=== PATIENT | female | born 2000 | race Caucasian/White ===

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

== ENCOUNTER 2019-01-10 12:21 | Emergency (ER) | payer MEDICAID ==
[~2019-01-10] VITALS: Ht 160 cm; Wt 94.3 kg
[2019-01-10 12:43] VITALS: BP 129/65
--- NOTE | 2019-01-10 13:01 | NUR ---
PT BIB FAMILY C/O COUGH AND THROAT PAIN X3 DAYS. PT REPORT SORE PAIN AT 10/10. PT REPORTS SOB AT NIGHT, STATES SHE HAS BEEN USING HER INHALER WITH NO RELIEF. RR EVEN, NON-LABORED, BREATH SOUNDS CLEAR, AIRWAY PATENT, NO REDNESS OR SWELLING VISIBLE IN THROAT. PT DENIES N/V/D OR FEVER. VSS. ER MD TO SEE PT. MEDHX:ASTHMA RX:ALBUTEROL
[2019-01-10 14:54] VITALS: BP 138/82
--- NOTE | 2019-01-10 14:54 | NUR ---
Patient discharged with v/s stable. Written and verbal after care instructions given and explained. Patient alert, oriented and verbalized understanding of instructions. Ambulatory with steady gait. All questions addressed prior to discharge. ID band removed. Patient advised to follow up with PMD. Rx of PREDNISONE 20MG, MOTRIN 800MG AND NORCO 5MG-325MG given. Patient educated on indication of medication including possible reaction and side effects. Opportunity to ask questions provided and answered.
== END 2019-01-10 14:54 | disposition home or self-care (01) ==
LOC: MED 12:21
DX: R05 Cough (principal); H92.01 Otalgia, right ear; R50.9 Fever, unspecified; J45.909 Unspecified asthma, uncomplicated
CPT/HCPCS: 81002; 81025; 99283

== ENCOUNTER 2019-01-30 23:57 | Emergency (ER) | payer MEDICAID ==
[~2019-01-30] VITALS: Ht 162.6 cm; Wt 86.2 kg
[2019-01-31 00:05] VITALS: BP 119/63
--- NOTE | 2019-01-31 00:05 | NUR ---
PT TAKEN TO BED 8
--- NOTE | 2019-01-31 00:05 | NUR ---
PT PRESENTS TO ED WITH REDNESS, EDEMA, AND EXUDATE ON OUTER LEFT EAR AND EAR CANNAL. STATES 10/10 PAIN. NO N/V. AFEBRILE WITH VSS. POSITIONED IN BED FOR COMFORT WITH HOB ELEVATED. X1 SIDE RAIL UP. CONTINUE TO MONITOR.
--- NOTE | 2019-01-31 00:17 | NUR ---
Dr. Grove evaluating patient at bedside.
[2019-01-31] MEDS ORDERED: KETOROLAC 30 MG/ML VIAL IM ONE (00:20)
[2019-01-31] MEDS ORDERED: HYDROcodone/APAP 5/325 MG 1 TAB TAB PO ONE (00:20)
[2019-01-31 01:10] VITALS: BP 117/68
--- NOTE | 2019-01-31 01:10 | NUR ---
DISCHARGE PAPERS GIVEN TO PT. PAIN DECREASED TO 2/10 BUT TOLLERABLE. AFEBRILE WITH VSS. INSTRUCTED TO F/U WITH PCP AND WHEN TO RETURN TO ER. RX OF OF ACYCLOVIR, MUPIROCIN, NORCO, AND CIPROFLOXACIN GIVEN. PT VERBALLIZED UNDERSTANDING OF DC INSTRUCTIONS. ALL QUETIONS ANSWERED.
== END 2019-01-31 01:10 | disposition home or self-care (01) ==
LOC: MED 23:57
DX: H60.91 Unspecified otitis externa, right ear (principal); L08.9 Local infection of the skin and subcutaneous tissue, unspecified; J45.909 Unspecified asthma, uncomplicated
CPT/HCPCS: 96372; 99283; J1885

== ENCOUNTER 2019-08-14 22:04 | Emergency (ER) | payer MEDICAID ==
[~2019-08-14] VITALS: Ht 165.1 cm; Wt 70.3 kg
[2019-08-14 22:11] VITALS: BP 129/70
--- NOTE | 2019-08-14 22:15 | NUR ---
18 Y/O FEMALE PRESENTS TO ED, C/O LEFT EAR PAIN 06/20. PT STATES NOTICING SMALL BUMP YESTERDAY AND GRADUALLY PROGRESSED TODAY. PAIN WORSENING AND RADIATES TO LEFT JAW. NO DRAINAGE OR BLEEDING NOTED DURING ASSESSMENT. PT DENIES TAKING ANY MEDICATIONS PRIOR TO ARRIVAL TO ED. PT DENIES N/V/D. PT AT STABLE CONDITION. WILL CONTINUE TO MONITOR.
--- NOTE | 2019-08-14 22:16 | NUR ---
PT TAKEN TO BED 7
--- NOTE | 2019-08-14 22:21 | NUR ---
Dr. Herrera examining patient.
[2019-08-14] MEDS ORDERED: CEPHALEXIN 500 MG CAP PO ONE (22:25)
[2019-08-14] MEDS ORDERED: BACITRACIN OINT 500 UNITS/GM PKT TP ONE (22:25)
[2019-08-14 22:55] VITALS: BP 122/75
== END 2019-08-14 22:55 | disposition home or self-care (01) ==
LOC: MED 22:04
DX: A46 Erysipelas (principal); H92.02 Otalgia, left ear; H02.9 Unspecified disorder of eyelid; J45.909 Unspecified asthma, uncomplicated
CPT/HCPCS: 99283

== ENCOUNTER 2019-11-10 21:15 | Emergency (ER) | payer MEDICAID ==
[~2019-11-10] VITALS: Ht 165.1 cm; Wt 90.7 kg
[2019-11-10 21:20] VITALS: BP 125/76
--- NOTE | 2019-11-10 21:25 | NUR ---
Pt ambulated to bed
[2019-11-10] MEDS ORDERED: NACL 0.9% 1,000 ML IV ONE (21:40)
[2019-11-10] MEDS ORDERED: ONDANSETRON 4 MG/2 ML VIAL IVP ONE (21:40)
--- NOTE | 2019-11-10 21:40 | NUR ---
APT C/O ABD PAIN X 1 WEEK PT STATES HAVING N/V/D AND FEVER. PT STATES FEVERS WENT AWAY ON MONDAY. PT APPEARS TO BE IN NO DISTRESS. PT DENIES URINARY SYMPTOMS. PT STATES PAIN GETS WORSE WITH EATING SPICY FOODS. PT STATES PAIN FEELS LIKE BURNING. SKIN IS PINK/WARM/DRY; AAOX4 WITH EVEN AND STEADY GAIT; LUNGS CLEAR BL; HR EVEN AND REGULAR; PT DENIES ANY CP, SOB, OR COUGH AT THIS TIME; PATIENT STATES PAIN OF 9/10 AT THIS TIME; VSS; PATIENT POSITIONED FOR COMFORT; HOB ELEVATED; BEDRAILS UP X1; BED DOWN. ER MD MADE AWARE OF PT STATUS.
[2019-11-10] MEDS ORDERED: ALUMINUM HYD/MAG/SIMETHICONE 30 ML UDC PO ONE (21:50)
[2019-11-10] MEDS ORDERED: LIDOCAINE VISCOUS 2% 20 ML UDC PO ONE (21:55)
[2019-11-10 22:06] LABS: BASOPHILS # (AUTO) 0.1 K/uL (0.00-0.22); BASOPHILS % (AUTO) 0.4 % (0.0-2.0); EOSINOPHILS # (AUTO) 0.3 K/uL (0-0.4); EOSINOPHILS % (AUTO) 2.2 % (0.0-4.0); HEMATOCRIT 36.8 % (36-48); HEMOGLOBIN 12.5 g/dL (12.0-16.0); LYMPHOCYTES # (AUTO) 3.8 K/uL (2.5-16.5); LYMPHOCYTES % (AUTO) 28.5 % (20.5-51.1); MEAN CORPUSCULAR HEMOGLOBIN 28 pg (27-31); MEAN CORPUSCULAR HGB CONC 34 g/dL (33-37); MEAN CORPUSCULAR VOLUME 83.1 fL (80-94); MONOCYTES # (AUTO) 0.9 K/uL (0.8-1.0); MONOCYTES % (AUTO) 6.9 % (1.7-9.3); NEUTROPHILS # (AUTO) 8.3 K/uL (1.8-7.7); PLATELET COUNT (AUTO) 399 K/uL (140-450); RED BLOOD CELL COUNT(AUTO) 4.43 MIL/uL (4.20-5.40); RED CELL DISTRIBUTION WIDTH 13.8 % (11.6-13.7); WHITE BLOOD COUNT (AUTO) 13.4 K/uL (4.5-11.0)
[2019-11-10 22:08] LABS: APPEARANCE,URINE CLEAR (CLEAR); BILIRUBIN,URINE NEGATIVE (NEGATIVE); BLOOD, URINE NEGATIVE (NEGATIVE); COLOR,URINE YELLOW (YELLOW); LEUKOCYTE ESTERASE ,URINE NEGATIVE (NEGATIVE); NITRITE, URINE NEGATIVE (NEGATIVE); UGLUCOSE NEGATIVE (NEGATIVE)
[2019-11-10 22:29] LABS: ANION GAP 12.3 (8-16); CARBON DIOXIDE 28.5 mmol/L (21-32); CREATININE 0.8 mg/dL (0.6-1.3); POTASSIUM 3.8 mmol/L (3.5-5.1); TOTAL BILIRUBIN 0.3 mg/dL (0.0-1.0)
[2019-11-10 23:25] VITALS: BP 124/74
--- NOTE | 2019-11-10 23:25 | NUR ---
NO CHANGES FROM PREVIOUS ASSESSMENT. PT VSS. PT APPEARS TO BE IN NO DISTRESS AT THIS TIME.Patient discharged with v/s stable. Written and verbal after care instructions given and explained. Patient alert, oriented and verbalized understanding of instructions. Ambulatory with steady gait. All questions addressed prior to discharge. ID band removed. Patient advised to follow up with PMD. Rx of OMPROZOLE given. Patient educated on indication of medication including possible reaction and side effects. Opportunity to ask questions provided and answered.
--- NOTE | 2019-11-11 08:30 | NUR ---
Late entry. Confirmed with RN that 0.9 NS IV completed at 2250
== END 2019-11-10 23:25 | disposition home or self-care (01) ==
LOC: MED 21:15
DX: R10.13 Epigastric pain (principal); R11.10 Vomiting, unspecified; R19.7 Diarrhea, unspecified; J45.909 Unspecified asthma, uncomplicated
CPT/HCPCS: 36415; 76705; 80053; 81003; 83690; 84703; 85025; 96361; 96374; 99284; J2405; J7030; Q0092

== ENCOUNTER 2020-04-19 03:54 | Emergency (ER) | payer MEDICAID ==
[~2020-04-19] VITALS: Ht 165.1 cm; Wt 97.1 kg
[2020-04-19 04:02] VITALS: BP 122/64
--- NOTE | 2020-04-19 04:08 | NUR ---
PT AMBULATED TO BED 04 WITH STEADY GAIT.
--- NOTE | 2020-04-19 04:49 | NUR ---
PT STATES SHE SMASHED HER RIGHT THUMB IN A DOOR TWO WEEKS AGO. HAS HAD PAIN SINCE BUT NEVER WENT TO DOCTOR. STATES THE PAIN HAS GOTTEN WORSE AND NOW IT HAS MOVED INTO HER OTHER FINGERS AND HAND. SLIGHT SWELLING NOTED TO THUMB. SKIN INTACT, NO BRUISING NOTED, NO DEFORMITY. PT ABLE TO MOVE ALL FINGERS. PT STATES SHE CAME TONIGHT DUE TO THE PAIN LEVEL BEING SO HIGH, 10/10. BED IN LOWEST POSITION AND SIDERAIL UP X 1 NKA NO MED HX
--- NOTE | 2020-04-19 04:53 | NUR ---
Dr. Grove examining patient.
--- NOTE | 2020-04-19 05:03 | NUR ---
Sienna barber in [facility] - 04/19/20 at 0553 by JARROD X-Ray at bedside.
--- NOTE | 2020-04-19 05:03 | NUR ---
X-RAY AT BEDSIDE
[2020-04-19] MEDS ORDERED: LIDOCAINE MPF 1% 10 MG/ML VIAL INJ ONE (05:35)
--- NOTE | 2020-04-19 06:00 | NUR ---
MD DAVIS AT BEDSIDE, TO PERFORM PROCEDURE OF DRAINING THUMB NAIL.
[2020-04-19] MEDS ORDERED: BACITRACIN OINT 500 UNITS/GM PKT TP ONE ×2 (06:18→06:20)
[2020-04-19 06:27] VITALS: BP 122/64
--- NOTE | 2020-04-19 06:28 | NUR ---
Patient discharged with v/s stable. Written and verbal after care instructions given and explained. Patient alert, oriented and verbalized understanding of instructions. Ambulatory with steady gait. All questions addressed prior to discharge. ID band removed. Patient advised to follow up with PMD. Rx of KEFLEX AND NAPROSYN given. Patient educated on indication of medication including possible reaction and side effects. Opportunity to ask questions provided and answered.
== END 2020-04-19 06:28 | disposition home or self-care (01) ==
LOC: MED 03:54
DX: S60.011A Contusion of right thumb without damage to nail, initial encounter (principal); J45.909 Unspecified asthma, uncomplicated; W22.8XXA Striking against or struck by other objects, initial encounter; Y93.89 Activity, other specified; Y92.098 Other place in other non-institutional residence as the place of occurrence of the external cause; Y99.8 Other external cause status
CPT/HCPCS: 11740; 73140; 99284; J2001; Q0092; 64450

== ENCOUNTER 2020-12-02 22:51 | Emergency (ER) | payer MEDICAID ==
[~2020-12-02] VITALS: Ht 165.1 cm; Wt 96.2 kg
[2020-12-02 22:55] VITALS: BP 115/71
--- NOTE | 2020-12-03 00:04 | NUR ---
PT TAKEN TO BED 6
--- NOTE | 2020-12-03 00:19 | NUR ---
20 Y/O F BIB SELF FROM HOME, PATIENT PRESENTS TO ED WITH BODY ACHES AND FATIGUE THAT STARTED THIS MORNING 12/02/20. DENIES N/V/D; SKIN IS PINK/WARM/DRY; AAOX4 WITH EVEN AND STEADY GAIT; LUNGS CLEAR BL; HR EVEN AND REGULAR; PT DENIES ANY FEVER, CP, SOB, OR COUGH AT THIS TIME; PATIENT STATES PAIN OF 0/10 AT THIS TIME; VSS; PATIENT POSITIONED FOR COMFORT; HOB ELEVATED; BEDRAILS UP X2; BED DOWN. ER MD MADE AWARE OF PT STATUS. NO MED AT HOME. NO PMH. ALLERGY TO PENICILLIN (HIVES).
[2020-12-03] MEDS ORDERED: HYDROXYZINE HYDROCHLORIDE 25 MG TAB PO STA (00:21)
--- NOTE | 2020-12-03 00:34 | NUR ---
LAB AT BEDSIDE.
[2020-12-03 00:56] LABS: BASOPHILS # (AUTO) 0.1 K/uL (0.00-0.22); BASOPHILS % (AUTO) 0.5 % (0.0-2.0); EOSINOPHILS # (AUTO) 0.3 K/uL (0-0.4); EOSINOPHILS % (AUTO) 2.3 % (0.0-4.0); HEMATOCRIT 36.9 % (36-48); HEMOGLOBIN 12.2 g/dL (12.0-16.0); LYMPHOCYTES # (AUTO) 5.1 K/uL (2.5-16.5); LYMPHOCYTES % (AUTO) 35.4 % (20.5-51.1); MEAN CORPUSCULAR HEMOGLOBIN 28 pg (27-31); MEAN CORPUSCULAR HGB CONC 33 g/dL (33-37); MEAN CORPUSCULAR VOLUME 85.6 fL (80-94); MONOCYTES # (AUTO) 1.1 K/uL (0.8-1.0); MONOCYTES % (AUTO) 7.5 % (1.7-9.3); NEUTROPHILS # (AUTO) 7.8 K/uL (1.8-7.7); NEUTROPHILS % (AUTO) 54.3 % (42.2-75.2); PLATELET COUNT (AUTO) 448 K/uL (140-450); RED BLOOD CELL COUNT(AUTO) 4.31 MIL/uL (4.20-5.40); RED CELL DISTRIBUTION WIDTH 13.6 % (11.6-13.7); WHITE BLOOD COUNT (AUTO) 14.3 K/uL (4.8-10.8)
--- NOTE | 2020-12-03 01:00 | NUR ---
EKG PERFORMED AT BEDSIDE. EKG READS SINUS RHYTHM @ 69
[2020-12-03 01:06] LABS: ALBUMIN 4.1 g/dL (3.4-5.0); CARBON DIOXIDE 29.5 mmol/L (21-32); CREATININE 0.7 mg/dL (0.6-1.3); FREE T4 (FREE THYROXINE) 1.01 ng/dL (0.76-1.46); POTASSIUM 3.5 mmol/L (3.5-5.1); THYROID STIMULATING HORMONE 3.05 uIU/mL (0.34-3.74); TOTAL BILIRUBIN 0.4 mg/dL (0.0-1.0)
--- NOTE | 2020-12-03 01:25 | NUR ---
X RAY AT BEDSIDE.
[2020-12-03] MEDS ORDERED: HYDR-636 PO (01:42)
[2020-12-03 02:12] VITALS: BP 115/71
--- NOTE | 2020-12-03 02:13 | NUR ---
Patient discharged with v/s stable. Written and verbal after care instructions given and explained. Patient verbalized understanding. Ambulatory with steady gait. All questions addressed prior to discharge. Advised to follow up with PMD.
== END 2020-12-03 02:13 | disposition home or self-care (01) ==
LOC: MED 22:51
DX: R00.2 Palpitations (principal); F41.9 Anxiety disorder, unspecified; Z88.0 Allergy status to penicillin; Z79.899 Other long term (current) drug therapy
CPT/HCPCS: 36415; 71045; 80053; 81002; 81025; 84439; 84443; 85025; 93005; 99283

== ENCOUNTER 2022-02-02 23:34 | Emergency (ER) | payer MEDICAID ==
[~2022-02-02] VITALS: Ht 165.1 cm; Wt 98.9 kg
[~2022-02-02 23:34] MED LIST changes: +HYDR-636 PO; -NATURAL IRON65 MG PO; -PRENATAL VITAMI1 T10 PO
[2022-02-03 01:02] VITALS: BP 120/76
--- NOTE | 2022-02-03 01:36 | NUR ---
DR BYRD AT BEDSIDE EXAMINING PT
[2022-02-03] MEDS ORDERED: ONDANSETRON 4 MG ODT PO ONE (01:45)
[2022-02-03] MEDS ORDERED: ACETAMINOPHEN EXTRA STRENGTH 500 MG TAB PO ONE (01:45)
--- NOTE | 2022-02-03 01:48 | NUR ---
21 Y/O FEMALE BIBS FROM HOME, C/O OF FALL AT 10PM FROM DIZZINESS. PT STATES SHE HIT RIGHT CHEEK ON DRESSER WHILE FALLING, PT FELT "POP" AND RINGING IN EARS AND "BLOOD CAME OUT FROM LEFT EAR." PAIN 10/10. PAIN AND SWELLING IN RIGHT CHEEKBONE. NO BRUISING/DEFORMITY/CREPITUS. PT CLAIMS SHE FELT DIZZY PRIOR TO THE FALL. A/OX4, GCS-15, NO LOC. UNLABORED BREATHING, AMBULATORY WITHOUT ASSISTANCE. PT LAYING IN BED WITH HOB RAISED AND BED IN OWEST SETTINGWTIH RAILS UP X2. PMH: MIGRAINES ALL: PCN MED: IBUPROFEN (FOR PREVIOUS UNRELATED KNEE INJURY)
[2022-02-03] MEDS ORDERED: IBUP-2213 PO (05:47)
[2022-02-03 06:07] VITALS: BP 120/76
--- NOTE | 2022-02-03 06:08 | NUR ---
Patient discharged with v/s stable. Written and verbal after care instructions given and explained. Patient alert, oriented and verbalized understanding of instructions. Ambulatory with steady gait. All questions addressed prior to discharge. ID band removed. Patient advised to follow up with PMD. Rx of IBUPROFEN given. Patient educated on indication of medication including possible reaction and side effects. Opportunity to ask questions provided and answered. VSS, A/OX4, UNLABORED BREATHING, AMBULATORY, AND CALM DEMEANOR.
== END 2022-02-03 06:07 | disposition home or self-care (01) ==
LOC: MED 23:34
DX: S00.83XA Contusion of other part of head, initial encounter (principal); S00.412A Abrasion of left ear, initial encounter; G43.909 Migraine, unspecified, not intractable, without status migrainosus; Z88.0 Allergy status to penicillin; W18.30XA Fall on same level, unspecified, initial encounter; Y93.89 Activity, other specified; Y92.89 Other specified places as the place of occurrence of the external cause; Y99.8 Other external cause status
CPT/HCPCS: 70110; 70450; 99285; Q0162

== ENCOUNTER 2022-07-11 10:08 | Emergency (ER) | payer MEDICAID ==
[~2022-07-11] VITALS: Ht 165.1 cm; Wt 74.8 kg
[~2022-07-11 10:08] MED LIST changes: +IBUP-2213 PO
[2022-07-11 10:19] VITALS: BP 115/65
[2022-07-11 10:50] LABS: BASOPHILS % (AUTO) 0.3 % (0.0-2.0); EOSINOPHILS # (AUTO) 0.2 K/uL (0-0.4); EOSINOPHILS % (AUTO) 1.6 % (0.0-4.0); HEMATOCRIT 35.3 % (36-48); HEMOGLOBIN 11.9 g/dL (12.0-16.0); LYMPHOCYTES # (AUTO) 2.8 K/uL (2.5-16.5); LYMPHOCYTES % (AUTO) 22.3 % (20.5-51.1); MEAN CORPUSCULAR HEMOGLOBIN 28 pg (27-31); MEAN CORPUSCULAR HGB CONC 34 g/dL (33-37); MEAN CORPUSCULAR VOLUME 83.3 fL (80-94); MONOCYTES # (AUTO) 0.8 K/uL (0.8-1.0); MONOCYTES % (AUTO) 6.6 % (1.7-9.3); NEUTROPHILS # (AUTO) 8.8 K/uL (1.8-7.7); NEUTROPHILS % (AUTO) 69.2 % (42.2-75.2); PLATELET COUNT (AUTO) 391 K/uL (140-450); RED BLOOD CELL COUNT(AUTO) 4.24 MIL/uL (4.20-5.40); RED CELL DISTRIBUTION WIDTH 13.3 % (11.6-13.7); WHITE BLOOD COUNT (AUTO) 12.7 K/uL (4.8-10.8)
[2022-07-11 11:08] LABS: ANION GAP 14.9 (8-16); CARBON DIOXIDE 23.5 mmol/L (21-32); CREATININE 0.5 mg/dL (0.6-1.3); POTASSIUM 3.4 mmol/L (3.5-5.1)
[2022-07-11 11:19] LABS: APPEARANCE,URINE CLEAR (CLEAR); BILIRUBIN,URINE NEGATIVE (NEGATIVE); BLOOD, URINE NEGATIVE (NEGATIVE); COLOR,URINE YELLOW (YELLOW); LEUKOCYTE ESTERASE ,URINE NEGATIVE (NEGATIVE); NITRITE, URINE NEGATIVE (NEGATIVE); UGLUCOSE NEGATIVE (NEGATIVE)
[2022-07-11] MEDS ORDERED: DOPPLER MC ONE (11:40)
--- NOTE | 2022-07-11 11:57 | NUR ---
PT AMBULATED TO BED 09
--- NOTE | 2022-07-11 12:02 | NUR ---
UNABLE TO OBTAIN HEART TONES. L&D NURSE CALLED TO BEDSIDE. NOT ABLE TO HEAR HEART TONES, ONLY MATERNAL. DR BLANCO NOTIFIED.
--- NOTE | 2022-07-11 12:11 | NUR ---
Ultrasound at bedside.
--- NOTE | 2022-07-11 12:25 | NUR ---
21 Y/O FEMALE BIB [facility] C/O DIZZINESS X3 DAYS, THIS AM LOST BALANCE AFTER SLIP IN THE SHOWER AND HIT RIGHT SIDE ON WALL C/O PAIN . 18 WEEKS . DENIES ANY VAGINAL BLEEDING, STATES CRAMPING ON THE LOWER PELVIC REGION, PER PT UNABLE TO FEEL MOVEMENT SINCE FALL THIS AM. [id number] ALLERGY: PCN PMH: DENIES
[2022-07-11 13:25] VITALS: BP 103/65
--- NOTE | 2022-07-11 13:25 | NUR ---
Patient discharged with v/s stable. Written and verbal after care instructions ABOUT ABD PAIN DURING given and explained. Patient verbalized understanding. Ambulatory with steady gait. All questions addressed prior to discharge. Advised to follow up with PMD.
== END 2022-07-11 13:25 | disposition home or self-care (01) ==
LOC: MED 10:08
DX: O26.892 Other specified pregnancy related conditions, second trimester (principal); O21.8 Other vomiting complicating pregnancy; R10.31 Right lower quadrant pain; Z3A.18 18 weeks gestation of pregnancy; Z88.0 Allergy status to penicillin; Z79.899 Other long term (current) drug therapy
CPT/HCPCS: 36415; 76805; 80048; 81003; 81025; 85025; 99284; Q0092